=== PATIENT | male | born 1965 | race Caucasian/White ===

== ENCOUNTER 2018-01-19 04:08 | Emergency (ER) | payer BC, SELFPAY ==
[2018-01-19 04:09] VITALS: BP 188/115; PULSE 74; RESP 20; TEMP 36.8; O2SAT 97; BMI 31.8
[2018-01-19] MEDS: 0.9% Normal Saline 1,000 ML 999 ML IV (04:15)
[2018-01-19] MEDS: Ondansetron 4 MG/2 ML Vial IV (04:18)
[2018-01-19] MEDS: Morphine 4 MG/ML Syringe IV (04:19)
[2018-01-19] MEDS: Ketorolac 30 MG/ML Syringe IV (04:19)
--- NOTE | 2018-01-19 04:20 | CT_ITS ---
HISTORY: LEFT FLANK PAIN SINCE 2129 RADIATES BILATERALLY TECHNIQUE: Helically acquired images were obtained of the abdomen and pelvis without oral or IV contrast as per renal stone protocol. A radiation dose optimization technique was used for this scan. IV Contrast dosage and agent: None. Oral contrast: None. COMPARISON: None FINDINGS: Both kidneys are normal in position. 3 x 2 mm stone within the mid left ureter at the L4-5 level with proximal mild hydronephrosis and hydroureter. Associated mild pyelosinus edema of the left kidney. No hydronephrosis or hydroureter on the right. No additional stones. Adrenal glands are not enlarged. Lung bases: Clear Mildly enlarged fatty liver. The spleen, pancreas, gallbladder, and biliary system show no CT abnormality. Small accessory spleen. Abdominal aorta is normal in caliber. No ascites or retroperitoneal lymphadenopathy. GI tract: Increased gas within nondilated small intestinal loops together with mild gaseous distention of the transverse colon compatible with reactive ileus. Sigmoid and left colonic diverticula. Pelvis: The prostate gland is not enlarged. The urinary bladder is on remarkable. The pelvis shows no free fluid or lymph node enlargement. Small fat-containing right inguinal hernia. CT/Abdomen/Pelvis without Cont IMPRESSION: 1. 3 mm stone within the mid left ureter at the L4-5 level with proximal mild hydronephrosis and hydroureter on the left. 2. Reactive ileus pattern. 3. Chronic findings include fatty liver infiltration and diverticulosis coli. Individualized dose optimization techniques were used for this CT. at 0504 Reported and signed by: Mohit Wilson MD Electronically Signed: Mohit Wilson, at 5:02 EST Tel , Service support ,
[2018-01-19 04:32] LABS: Absolute Lymphocyte Count 1.03 X10^3/ul (0.83-4.51); Absolute Neutrophil Count 6.6 X10^3/uL (2.0-7.7); Basophil# 0.04 X10^3/uL; Basophil% 0.5 % (0-1); Eosinophil# 0.01 X10^3/uL; Eosinophils% 0.1 % (0-5); Hematocrit 49.6 % (40-54); Lymphocyte # 1.03 X10^3/ul (4.0); Lymphocyte % 12.8 % (19-41); Mean Corp Hgb Conc 34.3 g/gl (32-36); Mean Corpuscular Hgb 32.7 pg (27.0-32.0); Mean Corpuscular Volume 95.4 fL (80-94); Mean Platelet Vol. 9.3 fl (6.2-12.0); Monocyte# 0.37 X10^3/uL; Monocyte% 4.6 % (0-10); Neutrophil # 6.57 X10^3/uL (2.7-7.7); Neutrophil % 81.8 % (47-70); Platelet Count 265 K/mm3 (150-450); RBC Distribution Width SD 41.1 fl (35.1-43.9)
[2018-01-19 04:35] LABS: POSITIVE COUNT NO; POSITIVE DIFFERENTIAL NO; POSITIVE MORPHOLOGY NO
[2018-01-19 04:42] LABS: Anion Gap 10 (5-15); BUN 16 mg/dL (7-18); Calcium,Total 9.6 mg/dL (8.5-10.1); Chloride 105 mmol/L (98-107); Creatinine, Serum 1.23 mg/dL (0.70-1.30); EST Glomerular Filtration Rate 66 mL/min (>60); Est Glom Filt Rate - Afr Amer 79 mL/min (>60); Estimated Creatinine Clearance 90.82 ml/min; Glucose 138 mg/dL (74-106); Potassium 4.5 mmol/L (3.5-5.1); Sodium Level 144 mmol/L (136-145)
[2018-01-19 05:54] LABS: Bacteria 0 SEEN /hpf (None Seen); Mucous, Urine 0 SEEN /hpf (<or=2+); White Blood Cells 0 SEEN /hpf (0-5)
[2018-01-19 06:03] LABS: Color, Urine Yellow (Yellow); Glucose, Dipstick Normal (Normal); Ketone-Dipstick Negative (Negative); Leukocyte Esterase-Dipstick Negative /ul (Negative); Nitrite-Dipstick Negative (Negative); Occult Blood-Urine 250 /ul (Negative); Protein-Dipstick Negative (Negative); Specific Gravity, Urine 1.015 (1.002-1.030); Urine Bilirubin Dipstick Negative (Negative); Urine Clarity Clear (Clear); Urine Urobilinogen Normal (Normal)
[2018-01-19 06:22] LABS: Red Blood Cells-Urine 5-10 SEEN /hpf (0-5); Squamous Epithelial Cells - UA 0-5 SEEN /hpf (0-5)
--- NOTE | 2018-01-19 06:30 | ED.VISSUMM ---
- ER Visit Summary Date of Service: 01/19/18 Chief Complaint: Severe abdominal pain History of Present Illness: The patient is a 52 M who presents with sudden onset severe left flank and lower abdominal pain. He states that this waxes and wanes some but remains severe. It is sharp in nature. It radiates from the left lower back around to the left lower abdomen. He reports nausea without vomiting. No diarrhea. No dysuria frequency urgency hematuria. No fever. No history of prior similar symptoms. No history of kidney stones. Physical Examination: Afebrile hypertensive at 188/115 Patient appears to be in significant pain pacing in the room Diaphoretic Heart regular rate and rhythm Lungs clear Abdomen soft Abdomen is tender and he does have some mild distention. He does not have guarding or rebound Test Results: CBC BMP unremarkable. Urinalysis shows 250 blood 5-[address] of the abdomen and pelvis shows a 3 mm mid left ureteral stone and mild hydroureter and hydronephrosis. There is increased gas in the small bowel and mild gaseous distention of the colon suggestive of a reactive ileus. Emergency Department Course and Treatment: Patient was treated here with IV fluids Toradol morphine and Zofran. He is resting comfortably on reevaluation and has had significant improvement of symptoms. Repeat abdominal exam soft. Patient symptoms are well controlled at this time. We discussed supportive management of his ureteral calculus. He was given prescriptions for Percocet and Flomax. He was referred to urology. He was advised of the findings of possible mild reactive ileus. I do not believe he requires hospitalization at this time but he was given clear instructions on signs and symptoms to monitor for and conditions which should prompt return here to the emergency department for reevaluation. Treatment Plan: [] Disposition: Discharge Impression: Ureterolithiasis This note was generated with [employer] dictation software. It may contain incorrect words, spelling, and punctuation that were not noted in review of the chart prior to signing ED Disposition - Plan for ED Patient: Chief Complaint: Flank Pain Referrals: Bhavin Kumar DO [Primary Care Provider] -
--- NOTE | 2018-01-19 06:35 | ED.DEP ---
ED Disposition - Plan for ED Patient: Chief Complaint: Flank Pain Instructions: ED Stone Renal W Colic Prescriptions: Oxycodone HCl/Acetaminophen [Percocet 5/325] 1 tab PO Q6H PRN PRN 3 Days #12 tab PRN Reason: Pain Tamsulosin HCl [Flomax] 0.4 mg PO DAILY #7 cap Referrals: Bhavin Kumar DO [Primary Care Provider] - Pasquale Miller MD [STAFF PHYSICIAN] -
[2018-01-19] MEDS: oxyCODONE 5 MG Tablet PO (06:46)
[2018-01-19 06:51] VITALS: BP 141/85; PULSE 65; RESP 16; O2SAT 97
== END 2018-01-19 06:53 | disposition home or self-care (01) ==
LOC: ED 04:43
PROVIDERS: Emergency Provider Emergency Medicine; Family Provider Student in an Organized Health Care Education/Training Program; PCP Student in an Organized Health Care Education/Training Program
DX: N13.2 Hydronephrosis with renal and ureteral calculous obstruction (principal); I10 Essential (primary) hypertension
CPT/HCPCS: 74176; 80048; 81001; 85025; 96361; 96374; 96375; 99283; J7030; A4216; J2405

== ENCOUNTER 2018-01-22 07:50 | Emergency (ER) | payer BC, SELFPAY ==
[2018-01-22 07:51] VITALS: BP 160/89; PULSE 96; RESP 18; TEMP 36.9; O2SAT 98; BMI 36.1
--- NOTE | 2018-01-22 07:57 | CT_ITS ---
STUDY: CT ABDOMEN AND PELVIS WITHOUT CONTRAST REASON FOR EXAM: Male, 52 years old. Left-sided flank pain. RADIATION DOSAGE (If Supplied By Facility): CTDIvol = ( 19.02 ) mGy, DLP = ( 1016.71 ) mGycm TECHNIQUE: Transaxial images were obtained from the dome of the diaphragm to the symphysis pubis without oral contrast, and without intravenous contrast. Sagittal and coronal images were reconstructed. Individualized dose optimization techniques were used for this CT. COMPARISON: CT abdomen and pelvis dated January 19, 2018. FINDINGS: The visualized lung bases are unremarkable. The visualized portions of the heart are within normal limits. There is decreased attenuation of the liver consistent with steatosis. Normal gallbladder and extrahepatic biliary system. Normal spleen. Small splenule is located anterior to the spleen. Normal pancreas. Normal bilateral adrenal glands. Normal right kidney. There is mild left-sided hydronephrosis and hydroureter secondary to distal ureteral calculus measuring approximately 2 mm in greatest dimension. There is periureteral inflammation adjacent to the distal ureter suggesting possible sequela of secondary infection or inflammation. There is a small hiatal hernia. There is no evidence for dilated bowel, ascites or pneumoperitoneum. The small bowel has a grossly normal appearance. The descending colon is nondistended which gives the appearance of thickened heredia. There are scattered colonic diverticula. There is non-visualization of the appendix. Normal abdominal aorta. Normal inferior vena cava. Normal retroperitoneum. Normal urinary bladder. Normal visualized prostate gland. There is a small umbilical hernia containing fat. Normal osseous structures. CT/Abdomen/Pelvis without Cont IMPRESSION: 1. Mild left-sided hydronephrosis and hydroureter with distal migration of the left ureteral calculus since previous study. 2. There appears be periureteral inflammation possibly related to secondary infection. 3. Hepatic steatosis. 4. Colonic diverticulosis. Electronically Signed: Naomi Lofton MD at 8:58 EST , Service support ,
[2018-01-22] MEDS: Ondansetron 4 MG/2 ML Vial IV (08:08)
[2018-01-22] MEDS: 0.9% Normal Saline 1,000 ML 125 ML IV (08:08)
[2018-01-22] MEDS: morphine 8 MG/ML Syringe IV ×2 (08:09→09:12)
[2018-01-22 08:11] LABS: Absolute Lymphocyte Count 0.91 X10^3/ul (0.83-4.51); Absolute Neutrophil Count 9.1 X10^3/uL (2.0-7.7); Basophil# 0.02 X10^3/uL; Basophil% 0.2 % (0-1); Eosinophil# 0.05 X10^3/uL; Eosinophils% 0.4 % (0-5); Hematocrit 47.6 % (40-54); Hemoglobin 16.1 g/dl (13.0-16.5); Lymphocyte # 0.91 X10^3/ul (4.0); Mean Corp Hgb Conc 33.8 g/gl (32-36); Mean Corpuscular Hgb 32.7 pg (27.0-32.0); Mean Corpuscular Volume 96.7 fL (80-94); Mean Platelet Vol. 9.2 fl (6.2-12.0); Monocyte# 1.26 X10^3/uL; Monocyte% 11.1 % (0-10); Neutrophil # 9.13 X10^3/uL (2.7-7.7); Neutrophil % 80.2 % (47-70); Platelet Count 211 K/mm3 (150-450); RBC Distribution Width SD 42.4 fl (35.1-43.9); Red Blood Count 4.92 M/mm3 (4.6-6.2); White Blood Count 11.4 K/mm3 (4.4-11.0)
[2018-01-22 08:13] LABS: POSITIVE COUNT NO; POSITIVE DIFFERENTIAL NO; POSITIVE MORPHOLOGY NO
--- NOTE | 2018-01-22 08:21 | ED.DCSUM_ITS ---
- ER Visit Summary Date of Service: 01/22/18 Chief Complaint: [] Left flank pain constipation recent kidney stone History of Present Illness: The patient is a 52 M [] indicates on Wednesday began have left flank pain he was seen in the emergency department diagnosed with left-sided kidney stone with colic he was put on narcotic medications and Flomax he is worse notes no improvement flank pain and now reports he is constipated. He has had no fever no cough his urinary habits have been unremarkable he has had almost no bowel habits in the last day or so he has had no vomiting no fever he has no history of GI ailments constipation. Physical Examination: [] Blood pressure is 160/80 general, no distress resting comfortably HEENT is generally unremarkable The neck is supple no adenopathy Cardiovascular, regular rate and rhythm Lungs, clear bilateral Abdomen, soft, there is some mild distention he complains of some pain to the left flank, rectal exam shows soft brown stool nontender Extremities, no clubbing cyanosis or edema Neurologic, awake alert answering questions appropriately moving all 4 extremities Test Results: [] Emergency Department Course and Treatment: [] His complaints his exam screening labs IV fluids pain management CT Labs show some slight elevation of the creatinine see all those reports CT scans nothing acute and indicates that the left ureteral stone is lower than it was before there is some hydroureter please see those reports his labs are all generally unremarkable as is the UA, he was continued complaint of constipation and he was given a soapsuds enema and he feels better after passing liquid stool Discussed inpatient versus outpatient management he feels better he wants to go home he will continue to use all of his outpatient med I will give him a few more days of Percocet, he will take high-fiber food MiraLAX or other stool softeners and follow up with [facility] and return for change in symptoms Treatment Plan: [] Disposition: [] Home stable Impression: [] Left-sided kidney stone with colic, constipation This note was generated with [employer] dictation software. It may contain incorrect words, spelling, and punctuation that were not noted in review of the chart prior to signing ED Disposition - Plan for ED Patient: Chief Complaint: Abd Pain Referrals: Bhavin Kumar DO [Primary Care Provider] -
[2018-01-22 08:32] LABS: ALB/GLOB Ratio 0.9 RATIO (0.9-2.4); AST(SGOT) 19 U/L (15-37); Alanine Aminotransfer ALT/SGPT 30 U/L (16-61); Albumin, Serum 3.7 g/dL (3.2-5.0); Alkaline Phosphatase 64 U/L (45-117); Anion Gap 6 (5-15); BUN 19 mg/dL (7-18); BUN/Creat Ratio 13.1 RATIO (10-20); Calcium,Total 8.5 mg/dL (8.5-10.1); Chloride 102 mmol/L (98-107); Creatinine, Serum 1.45 mg/dL (0.70-1.30); EST Glomerular Filtration Rate 54 mL/min (>60); Est Glom Filt Rate - Afr Amer 66 mL/min (>60); Estimated Creatinine Clearance 65.41 ml/min; Globulin 4.3 g/dL (2.2-4.2); Glucose 117 mg/dL (74-106); Lipase 70 U/L (73-393); Potassium 4.1 mmol/L (3.5-5.1); Sodium Level 137 mmol/L (136-145)
[2018-01-22 09:06] LABS: Bacteria 0 SEEN /hpf (None Seen); Mucous, Urine 0 SEEN /hpf (<or=2+); Squamous Epithelial Cells - UA 0 SEEN /hpf (0-5); White Blood Cells 0 SEEN /hpf (0-5)
[2018-01-22 09:09] LABS: Color, Urine Yellow (Yellow); Glucose, Dipstick Normal (Normal); Ketone-Dipstick Negative (Negative); Leukocyte Esterase-Dipstick Negative /ul (Negative); Nitrite-Dipstick Negative (Negative); Occult Blood-Urine 50 /ul (Negative); Protein-Dipstick 30 mg/dl (Negative); Specific Gravity, Urine 1.015 (1.002-1.030); Urine Bilirubin Dipstick Negative (Negative); Urine Clarity Clear (Clear); Urine Urobilinogen 4 mg/dl (Normal); Urine pH 6.5 (5.0 - 8.0)
[2018-01-22 09:12] VITALS: BP 153/99; PULSE 77; RESP 17; O2SAT 95
[2018-01-22 09:19] LABS: Red Blood Cells-Urine 5-10 SEEN /hpf (0-5)
[2018-01-22 11:31] VITALS: BP 148/62; PULSE 84; RESP 19; O2SAT 99
--- NOTE | 2018-01-22 12:53 | ED.DEP ---
ED Disposition - Plan for ED Patient: Chief Complaint: Abd Pain Instructions: ED Stone Kidney Undescended No Sx, ED Stone Renal W Colic Prescriptions: Oxycodone HCl/Acetaminophen [Percocet 5/325] 1 tab PO Q6H PRN PRN 3 Days #12 tab PRN Reason: Pain Referrals: Bhavin Kumar DO [Primary Care Provider] - Pasquale Miller MD [STAFF PHYSICIAN] -
[2018-01-22 13:08] VITALS: BP 110/65; PULSE 72; RESP 16; O2SAT 100
== END 2018-01-22 13:10 | disposition home or self-care (01) ==
PROVIDERS: Emergency Provider Emergency Medicine; Family Provider Student in an Organized Health Care Education/Training Program; PCP Student in an Organized Health Care Education/Training Program
DX: K59.00 Constipation, unspecified (principal); N20.1 Calculus of ureter
CPT/HCPCS: 74176; 80053; 81001; 83690; 85025; 96361; 96374; 96375; 96376; 99285; J7030; A4216; J2405